=== PATIENT | female | born 1995 | race Caucasian/White ===

== ENCOUNTER 2024-05-11 05:28 | Emergency (ER) | payer BC, SELFPAY ==
[2024-05-11 05:38] VITALS: BMI 21.5
[2024-05-11 06:02] LABS: % Basophils 0.1 % (0-2); % Eosinophils 0.1 % (0-6); % Immature Granulocytes 0.3 % (0-0.5); % Lymphocytes 4.9 % (20.5-51.1); % Monocytes 3.1 % (1.7-9.3); % Neutrophils 91.5 % (42.2-75.2); Absolute Immature Granulocytes 0.1 10^3/uL (0-0.05); Absolute Lymphocytes 0.7 10^3/uL (1.2-3.4); Absolute Monocytes 0.5 10^3/uL (0.1-0.6); Absolute Neutrophils 13.3 10^3/uL (1.4-6.5); Hematocrit 35.8 % (37.0-47.0); Hemoglobin 12.9 g/dL (12.0-16.0); Mean Corpuscular Hgb 31.2 pg (27.0-31.0); Mean Corpuscular Volume 86.7 fL (81.0-99.0); Mean Platelet Volume 9.4 fL (7.4-10.4); Nucleated Red Blood Cells % 0 %; Platelet Count 244 10^3/uL (130-400); Red Blood Cell Count 4.13 10^6/uL (4.20-5.40); Red Cell Dist. Width 11.4 % (11.5-14.5); White Blood Cell Count 14.5 10^3/uL (4.8-10.8)
--- NOTE | 2024-05-11 06:05 | EDRN ---
Pt moaning and screaming loudly, takes at least 5-10 seconds to answer a question. Pt says she developed lower abd pain around 0130 that is constant, sometimes sharp, worse at times. Pt is on depo and has not had a period for 3 years. Pt with
nausea and says she vomited about 15 minutes prior to arrival in ED. No pain medications taken. Pt denies cp, sob, diarrhea/constipation, urinary symptoms, dizziness, weakness. Last BM yesterday.
--- NOTE | 2024-05-11 06:08 | ED.GENMED ---
History of Present Illness
General
Chief Complaint: Abdominal Pain
Source: patient and family (Father)
Exam Limitations: none
Time Seen by Provider: 05/11/24 06:00
Nursing documentation reviewed up to this point in time: agreed with
History of Present Illness
History of Present Illness:
28 yo female presents to the emergency department complaining of abdominal pain since this morning that woke her up. She has had pain like this before, but this feels different.
Past History
Past History
ED Past Medical History: GERD and Other
ED Past Surgical History: None
Social History
Tobacco: Non-smoker
Alcohol: None
Drug: Marijuana
Personal:
Living: with family
Review of Systems
Review of Systems
Allergies reviewed?: Yes
All Other Systems: Not applicable
Constitutional: Reports no symptoms
EENT: Reports no symptoms
Respiratory: Reports no symptoms
Cardiac: Reports no symptoms
ABD/GI: Reports abdominal pain, vomiting and diarrhea
: Reports no symptoms
Musculoskeletal: Reports no symptoms
Skin: Reports no symptoms
Neurological: Reports no symptoms
Endocrine: Reports no symptoms
Hematologic/Lymphatic: Reports no symptoms
Psychiatric: Reports no symptoms
Phy Exam
Physical Exam
Physical Exam:
Physical Exam
General: Moderate distress, not acutely ill
Neck: supple. no meningeal signs. normal posterior pharynx
Heart: s1/s2 regular rate and rhythm, no murmur. equal radial
pulses.
HEENT: Pupils equal round reactive to light, EOMI
Lungs: no acute respiratory distress. clear bilaterally
Abdomen: normal bowel sounds. Mild right pelvic tenderness. no CVAT
Neuro: alert and oriented. no focal neurological deficits cranial nerves II through XII intact
Skin: no rash
Psychiatric: well kept. interactive and cooperative
Extremities: no edema. no calf tenderness. negative homans. good distal pulses
Course
Orders/Labs/Results
Orders:
Orders
05/11/24 05:41
IV Insert/Care/Rem.- Treatment PRN
Test Result ONCE
05/11/24 05:49
Complete Blood Count/With Diff Urgent
Comprehensive Metabolic Panel Urgent
HCG, Serum Qualitative Screen Urgent
Comment: Notify provider if positive test present
Lipase Urgent
05/11/24 06:07
US Pelvis Only (non-obstetric) Urgent
Reason For Exam: right pelvic pain
05/11/24 06:08
Ketorolac [Toradol] 15 mg IV NOW STA
05/11/24 06:12
Electrocardiogram (*1) Urgent
Reason for Study: QTc Monitoring
EKG- Treatment ONCE
05/11/24 06:19
Lactated Ringers [Lr] 1,000 ml IV BOLUS
05/11/24 06:41
Haloperidol Lactate [Haldol] 1 mg IV NOW STA
05/11/24 09:20
Urinalysis Reflex To Culture Urgent
Date Specimen was Collected: 05/11/24
Time Specimen was Collected: 09:19
Urine Microscopic Reflex Cult Urgent
Urine Culture Urgent
MAHAD Source: U
Specimen Description:
Date Specimen was Collected: 05/11/24
Time Specimen was Collected: 09:19
Abnormal Lab Results
05/11/24 05/11/24
05:49 09:20
WBC 14.5 H 10^3/uL
(4.8-10.8)
RBC 4.13 L 10^6/uL
(4.20-5.40)
Hct 35.8 L %
(37.0-47.0)
MCH 31.2 H pg
(27.0-31.0)
RDW 11.4 L %
(11.5-14.5)
Abs Immat Gran (auto) 0.1 H 10^3/uL
(0-0.05)
Absolute Neuts (auto) 13.3 H 10^3/uL
(1.4-6.5)
Absolute Lymphs (auto) 0.7 L 10^3/uL
(1.2-3.4)
Neutrophils % 91.5 H %
(42.2-75.2)
Lymphocytes % 4.9 L %
(20.5-51.1)
Carbon Dioxide 21 L mmol/L
(22-30)
Glucose 124 H mg/dl
(70-99)
Urine Ketones 2+ A
(Negative)
Ur Occult Blood Reflex Trace A
(Negative)
Urine Nitrite (Reflex) Positive A
(Negative)
Urine Bilirubin 1+ A
(Negative)
Urine Urobilinogen 2+ A
(Neg - 1+)
Leukocyte Esterase Rfl Trace A
(Negative)
Urine Bacteria (Reflex) Moderate A
(Negative)
05/11/24 05:49
05/11/24 05:49
Vital Signs
Initial and Last Documented VS:
Initial Vital Signs
Pulse Resp Pulse Ox
117 30 100
05/11/24 05:30 05/11/24 05:30 05/11/24 05:30
Last Documented Vital Signs
Pulse Resp BP Pulse Ox
99 18 110/64 99
05/11/24 10:23 05/11/24 10:23 05/11/24 10:23 05/11/24 10:23
MDM/Problems Addressed
Differential Diagnosis Includes:
Appendicitis, ovarian torsion, ovarian cyst, cannabis hyperemesis
MDM/Problems Addressed:
28-year-old female with nausea vomiting diarrhea abdominal pain, doubt appendicitis, no signs ovarian torsion. Suspect related to marijuana use. Patient improved after IV Haldol, IV fluids. Repeat exam no pelvic or abdominal tenderness. Patient
states she feels improved.
*Radiology
Radiology exam reviewed: radiology read reviewed (Ultrasound pelvis no acute findings)
*Pulse Oximetry
Patient hypoxic: no
*EKG
Interpreted by ED Provider?: Yes
EKG Intrepretation Date: 05/11/24
EKG Intrepretation Time: 06:21
Interpretation: abnormal
Comparison EKG: no comparison EKG present
Heart Rate: 90
Rate: normal
Rhythm: sinus
[place]: right axis deviation
Interval: normal interval
QRS Pattern: normal QRS
Ischemia: no ischemia
*[employer] Professional Interpretation
Rate: normal
Interpretation: normal
Heart Rate: 88
Rhythm: sinus
*Critical Care Note
Total Time (30-74mins, 75-104mins- exclusive of procedures): Not Applicable
Data Reviewed
Further Testing Considered But Not Given:
ct a/p not indicated
Patient Management
Social determinants of health affecting care: Living situation and Substance abuse (marijuana use)
Escalation/DeEscalation of care consider admission/obs:
admit not indicated
ED Attending Note
-
Portions of this chart may have been created with voice recognition software.� Occasional wrong word or��sound alike� substitutions may have occurred due to the inherent limitations of voice recognition software.
Discharge Plan
Departure
Patient Disposition: Home (Routine Discharge)
Date of Disposition: 05/11/24
Time of Disposition: 10:12
Patient with high blood pressure during this ER visit?: No
Condition: Good
Discharge Problem:
Abdominal pain, Nausea vomiting and diarrhea
Instructions: Diarrhea in teens and adults, Nausea and Vomiting, Adult (DC), Abdominal Pain
Prescriptions:
New
ondansetron 4 mg tablet,disintegrating
4 mg PO Q8H PRN (Reason: nausea and vomiting) 4 Days Qty: 7 0RF
No Action
valacyclovir 500 MG tablet
500 mg PO DAILYPRN PRN (Reason: cold sore flare)
medroxyprogesterone [Depo-Provera] 150 mg/mL Syringe
150 mg IM [id number]
lamotrigine [Lamictal XR] 50 mg Tablet Extended Release 24hr
50 mg PO DAILY
vilazodone [Viibryd] 10 mg Tablet
10 mg PO DAILY
Methylfolate
1 tab PO DAILY
Adzenys XR-ODT 15.7 mg Tablet,Disinteg Er Biphase 24h
15.7 mg PO DAILY
Qulipta 60 mg Tablet
60 mg PO DAILY
prazosin 2 mg Capsule
2 mg PO DAILY
nortriptyline 50 mg Capsule
50 mg PO DAILY
Referrals:
UNKNOWN - PT DOES,NOT KNOW [Family Provider] -
Interventions
Interventions:
*Risk Screen - Suicide Last Done: 05/11/24 05:45
*General Assessment Last Done: 05/11/24 05:45
*Neglect/Abuse Screening Last Done: 05/11/24 05:45
ED- Fall Risk Assessment Last Done: 05/11/24 06:24
*ED COVID-19 Vaccine History Last Done: 05/11/24 05:45
*Nursing Disposition Last Done: 05/11/24 10:23
QQ-Idilen-Otxdlrspfn Assessment Last Done: 05/11/24 06:24
Discharge Date and Time
Discharge Date/Time: 05/11/24 10:24
Print Language: MOLDOVAN
[2024-05-11] MEDS: TORADOL 15 MG IV (06:14)
[2024-05-11] MEDS: LR 1000 IV (06:22)
[2024-05-11 06:27] LABS: ALT (SGPT) 25 U/L (0-35); AST (SGOT) 24 U/L (14-36); Albumin 4.5 g/dl (3.5-5.0); Alkaline Phosphatase 84 U/L (38-126); Blood Urea Nitrogen 16 mg/dl (7-17); Calcium 9.2 mg/dl (8.4-10.2); Carbon Dioxide 21 mmol/L (22-30); Chloride 105 mmol/L (98-107); Estimated Creatinine Clearance 105 ml/min; Glucose 124 mg/dl (70-99); Lipase 81 U/L (23-300); Potassium 3.6 mmol/L (3.5-5.1); Sodium 140 mmol/L (135-145); Total Bilirubin 0.4 mg/dl (0.2-1.3); Total Protein 6.9 g/dl (6.3-8.2); eGFR > 60.00
[2024-05-11 06:33] LABS: HCG, Serum Qualitative Screen Negative
[2024-05-11] MEDS: HALDOL 1 MG IV (06:54)
[2024-05-11 10:16] LABS: Urine Albumin Trace (Neg - Trace); Urine Bilirubin 1+ (Negative); Urine Character Clear (Clear); Urine Color Amber; Urine Glucose Negative (Negative); Urine Ketone 2+ (Negative); Urine Leukocyte Trace (Negative); Urine Nitrite Positive (Negative); Urine Occult Blood Trace (Negative); Urine Specific Gravity 1.025 (<1.030); Urine Urobilinogen 2+ (Neg - 1+)
[2024-05-11 10:23] VITALS: BP 110/64
[2024-05-11 11:00] LABS: Urine Mucus Many
[2024-05-11 11:11] LABS: Urine Amorphous Seen; Urine Calcium Oxalate Crystals Present
[2024-05-11 11:12] LABS: Urine Bacteria Moderate (Negative); Urine Red Blood Cell 0-2 /HPF (0-2); Urine White Cell 0-2 /HPF (0-5)
== END 2024-05-11 10:24 | disposition home or self-care (01) ==
LOC: EMR 05:28
PROVIDERS: Emergency Medicine; EMERGENCY PHYSICIAN Emergency Medicine
DX: R10.9 Unspecified abdominal pain (principal); R11.2 Nausea with vomiting, unspecified; R19.7 Diarrhea, unspecified; K21.9 Gastro-esophageal reflux disease without esophagitis; F12.90 Cannabis use, unspecified, uncomplicated
CPT/HCPCS: 96374; 96375; 99284; 76856; 80053; 81003; 81015; 83690; 84703; 85025; 87086; 93005